=== PATIENT | female | born 1975 | race Caucasian/White ===

== ENCOUNTER 2016-12-07 15:54 | Observation (INO) | payer OTHER ==
[~2016-12-07] VITALS: Ht 152.4 cm; Wt 55.8 kg
[~2016-12-07 15:54] MED LIST: AMBIEN5 MG PO; ATIVAN2 MG PO; CEFTIN500 MG PO; CIPRO500 MG PO; DILAUDID2 MG PO; FERROUS SULFAT325 MG PO; FOLIC ACID1 MG PO; KEFLEX500 MG PO; LEVAQUIN750 MG PO; LIBRIUM25 MG PO; OXYCODONE HCL5 MG PO; PERCOCET 5/31 TABLET PO; PHENAZOPYRIDIN100 MG PO; THERAGRAN1 TABLET PO; THIAMINE HCL100 MG PO; TYLENOL EXTRA500 MG PO; Thiamine,Vitamin B1 PO; XANAX1 MG PO; ZOFRAN ODT4 MG PO
[2016-12-07 17:42] LABS: EOSINOPHIL (%) 0.8 % (0-5); HEMATOCRIT 35.3 % (36.0-46.0); LYMPHOCYTE COUNT 2.4 K/uL (1.0-2.8); MCH 35.6 PG (29.0-34.0); MCHC 34.6 G/DL (30.0-36.0); MCV 102.9 FL (83-99); MEAN PLAT.VOLUME 8.4 uM^3 (9.5-12.4); MONOCYTE (%) 7.9 % (3-12); MONOCYTE COUNT 0.4 K/uL (0-0.8); NEUTROPHIL (%) 44.5 % (45-76); NEUTROPHIL COUNT 2.4 K/uL (1.8-6.4); PLATELET COUNT 207 K/uL (156-360); RBC DIS.WIDTH-CV 13.4 % (11.8-14.6); RBC DIS.WIDTH-SD 49.3 % (39-53); RED BLOOD COUNT 3.43 M/uL (3.80-5.20); WHITE BLOOD COUNT 5.3 K/uL (4.1-10.2)
[2016-12-07 17:50] LABS: CHLORIDE 105 mEq/L (99-109); POTASSIUM 3.8 mEq/L (3.7-5.4); SODIUM 139 mEq/L (136-147)
[2016-12-07 17:52] LABS: GLUCOSE 94 mg/dL (70-99)
[2016-12-07 17:54] LABS: ANION GAP 13 MEQ/L (2-14); TOTAL BILIRUBIN 0.4 mg/dL (0.0-1.0)
[2016-12-07 17:56] LABS: ALKALINE PHOSPHATASE 51 IU/L (3-129); GFR ESTIMATE (CALCULATED) > 59 mL/min/
[2016-12-07 17:57] LABS: UREA NITROGEN (BUN) 15 mg/dL (9-23)
[2016-12-07 18:05] LABS: QUANTITATIVE HCG < 4.0 MIU/ML
[2016-12-07 21:48] LABS: TROP-I INTERPRETATION NEGATIVE; TROPONIN-I < 0.01 ng/mL (0.0-0.30)
[2016-12-07] MEDS ORDERED: NAPROSYN250 MG PO (22:46)
[2016-12-07] MEDS ORDERED: AMBIEN10 MG PO (22:47)
[2016-12-08 00:07] VITALS: BP 167/106
[2016-12-08 08:11] VITALS: BP 146/92
[2016-12-08 12:33] VITALS: BP 141/84
[2016-12-08 15:01] VITALS: BP 132/84
[2016-12-08 20:25] VITALS: BP 108/74
[2016-12-08 23:59] VITALS: BP 112/62
[2016-12-09 04:26] VITALS: BP 105/71
[2016-12-09 07:43] VITALS: BP 124/92
[2016-12-09 07:48] VITALS: BP 124/92
[2016-12-09] MEDS ORDERED: PREDNISONE20 MG PO (09:36)
[2016-12-09] MEDS ORDERED: LISINOPRIL5 MG PO (09:36)
[2016-12-09] MEDS ORDERED: CYCLOBENZAPRINE10 MG PO (09:36)
[2016-12-09] MEDS ORDERED: ENDOCET 5-3251 EACH PO (09:36)
[2016-12-09] MEDS ORDERED: LIDODERM 5% P1 PATCH TD (09:36)
[2016-12-09 10:28] VITALS: BP 124/92
== END 2016-12-09 11:01 | disposition home or self-care (01) ==
LOC: EME 15:54 → EDOF 23:20 → 5WEST 23:20 → EDOF 23:20 → 5WEST 23:52
PROVIDERS: Emergency Medicine
DX: S22.049A Unspecified fracture of fourth thoracic vertebra, initial encounter for closed fracture (principal); Y92.89 Other specified places as the place of occurrence of the external cause; Y93.44 Activity, trampolining; R07.9 Chest pain, unspecified; M62.830 Muscle spasm of back; F41.0 Panic disorder [episodic paroxysmal anxiety]; I10 Essential (primary) hypertension; R11.0 Nausea
CPT/HCPCS: 71260; 72129; 74177; 80053; 84484; 84702; 85025; 93005; 99281; 99285; G0378; J1100; J1170; J1644; J1885; J2060; J2405; J2765; J7030; J7512

== ENCOUNTER → 2017-03-05 19:58 | Emergency (ER) | payer OTHER ==
[~2017-03-05] VITALS: Ht 152.4 cm; Wt 53.4 kg
[~2017-03-05 19:58] MED LIST changes: +AMBIEN10 MG PO; +CYCLOBENZAPRINE10 MG PO; +ENDOCET 5-3251 EACH PO; +LIDODERM 5% P1 PATCH TD; +LISINOPRIL5 MG PO; +NAPROSYN250 MG PO; +PREDNISONE20 MG PO
[2017-03-05 20:16] VITALS: BP 137/99
== END | disposition left against medical advice (07) ==
LOC: EME 19:58
DX: R06.9 Unspecified abnormalities of breathing (principal); Z53.21 Procedure and treatment not carried out due to patient leaving prior to being seen by health care provider
CPT/HCPCS: 80053; 81003; 84702; 85027

== ENCOUNTER 2017-05-28 10:24 | Inpatient (IN) | payer OTHER ==
[~2017-05-28] VITALS: Ht 152.4 cm; Wt 53.7 kg
[2017-05-28 11:44] LABS: ADD MIUA? NO; BILIRUBIN NEGATIVE; BLOOD NEGATIVE; COLOR YELLOW ((YELLOW)); GLUCOSE (STRIP) NEGATIVE; KETONES 20; LEUKOCYTES NEGATIVE; NITRITE NEGATIVE; PROTEIN (STRIP) NEGATIVE; SPECIFIC GRAVITY 1.019 (1.000-1.030); UCUL ADDED? NO; UROBILINOGEN 0.2 MG/DL (0.2-1.0)
[2017-05-28 12:09] LABS: EOSINOPHIL (%) 0 % (0-5); HEMATOCRIT 32.4 % (36.0-46.0); IMMATURE GRANULOCYTE (%) 0.3 % (0.0-0.7); INSTRUMENT ABS NEUTROPHIL CT 2.6 K/uL; LYMPHOCYTE COUNT 0.4 K/uL (1.0-2.8); MCH 35.7 PG (29.0-34.0); MCV 105.2 FL (83-99); MONOCYTE (%) 9.4 % (3-12); MONOCYTE COUNT 0.3 K/uL (0-0.8); NEUTROPHIL (%) 77.9 % (45-76); NEUTROPHIL COUNT 2.6 K/uL (1.8-6.4); PLATELET COUNT 169 K/uL (156-360); RBC DIS.WIDTH-CV 13.8 % (11.8-14.6); RBC DIS.WIDTH-SD 53.5 % (39-53); RED BLOOD COUNT 3.08 M/uL (3.80-5.20); WHITE BLOOD COUNT 3.3 K/uL (4.1-10.2)
[2017-05-28 12:22] LABS: CHLORIDE 104 mEq/L (99-109); POTASSIUM 4.3 mEq/L (3.7-5.4); SODIUM 135 mEq/L (136-147)
[2017-05-28 12:24] LABS: GLUCOSE 98 mg/dL (70-99)
[2017-05-28 12:26] LABS: ANION GAP 13 MEQ/L (2-14); TOTAL BILIRUBIN 0.6 mg/dL (0.0-1.0)
[2017-05-28 12:28] LABS: ALKALINE PHOSPHATASE 73 IU/L (3-129); GFR ESTIMATE (CALCULATED) > 59 mL/min/
[2017-05-28 12:29] LABS: UREA NITROGEN (BUN) 7 mg/dL (9-23)
[2017-05-28] MEDS ORDERED: ZOFRAN4 MG PO (13:37)
[2017-05-28] MEDS ORDERED: CLONIDINE HCL0.2 MG PO (13:37)
[2017-05-28] MEDS ORDERED: MULTI VITAMIN1 EACH PO (13:37)
[2017-05-28] MEDS ORDERED: BACTRIM,SEPT1 TABLET PO (13:38)
[2017-05-28 14:03] LABS: QUANTITATIVE HCG < 4.0 MIU/ML
[2017-05-28 14:44] LABS: HBSG INDEX 0.27; HPCA INDEX 0.24
[2017-05-28 14:45] LABS: ANTI-HEPATITIS A VIRUS (IGM) Nonreactive; HAV INDEX 0.14
[2017-05-28 14:46] LABS: ANTI-HEPATITIS B CORE (IGM) Nonreactive; HBC IgM INDEX 0.08
[2017-05-28 15:41] LABS: FERRITIN 81 NG/ML (10-291)
[2017-05-28 16:22] VITALS: BP 144/91
[2017-05-28 19:51] VITALS: BP 151/83
[2017-05-29] VITALS: BP 144/81
[2017-05-29 07:59] VITALS: BP 140/84
[2017-05-29 12:04] VITALS: BP 184/99
[2017-05-29 15:24] LABS: MCH 35.4 PG (29.0-34.0); MCHC 33.1 G/DL (30.0-36.0); MCV 106.7 FL (83-99); MEAN PLAT.VOLUME 9.1 uM^3 (9.5-12.4); PLATELET COUNT 168 K/uL (156-360); RBC DIS.WIDTH-CV 13.5 % (11.8-14.6); RBC DIS.WIDTH-SD 54.1 % (39-53); RED BLOOD COUNT 3.28 M/uL (3.80-5.20); WHITE BLOOD COUNT 2.6 K/uL (4.1-10.2)
[2017-05-29 16:02] LABS: ANION GAP 9 MEQ/L (2-14); CHLORIDE 103 MEQ/L (99-109); GFR ESTIMATE (CALCULATED) > 59 mL/min/; GLUCOSE 141 mg/dL (70-99); POTASSIUM 3.5 MEQ/L (3.7-5.4); SAMPLE HEMOLYSIS CHECK 0; SAMPLE ICTERIC CHECK 0; SAMPLE LIPEMIA CHECK 0; SODIUM 133 MEQ/L (136-147); UREA NITROGEN (BUN) 2 mg/dL (9-23)
[2017-05-29 16:08] VITALS: BP 141/71
[2017-05-29 23:50] VITALS: BP 150/89
[2017-05-30 03:37] VITALS: BP 149/86
[2017-05-30 06:40] LABS: EOSINOPHIL (%) 5.4 % (0-5); EOSINOPHIL COUNT 0.2 K/uL (0-0.3); HEMATOCRIT 31.5 % (36.0-46.0); INSTRUMENT ABS NEUTROPHIL CT 1.2 K/uL; LYMPHOCYTE COUNT 1.1 K/uL (1.0-2.8); MCH 36.9 PG (29.0-34.0); MCHC 34.6 G/DL (30.0-36.0); MCV 106.8 FL (83-99); MEAN PLAT.VOLUME 9.5 uM^3 (9.5-12.4); MONOCYTE (%) 13.7 % (3-12); MONOCYTE COUNT 0.4 K/uL (0-0.8); NEUTROPHIL COUNT 1.2 K/uL (1.8-6.4); PLATELET COUNT 160 K/uL (156-360); RBC DIS.WIDTH-CV 13.3 % (11.8-14.6); RBC DIS.WIDTH-SD 52.5 % (39-53); RED BLOOD COUNT 2.95 M/uL (3.80-5.20); WHITE BLOOD COUNT 2.8 K/uL (4.1-10.2)
[2017-05-30 07:02] VITALS: BP 148/83
[2017-05-30 07:04] LABS: ALKALINE PHOSPHATASE 56 IU/L (3-129); ANION GAP 9 MEQ/L (2-14); CHLORIDE 108 MEQ/L (99-109); GFR ESTIMATE (CALCULATED) > 59 mL/min/; GLUCOSE 113 mg/dL (70-99); SAMPLE HEMOLYSIS CHECK 0; SAMPLE ICTERIC CHECK 0; SAMPLE LIPEMIA CHECK 0; SODIUM 138 MEQ/L (136-147); TOTAL BILIRUBIN 0.5 MG/DL (0.0-1.0); UREA NITROGEN (BUN) 2 mg/dL (9-23)
[2017-05-30 07:08] LABS: POTASSIUM 4.4 MEQ/L (3.7-5.4)
[2017-05-30] MEDS ORDERED: FOLIC ACID1 MG PO (10:10)
[2017-05-30] MEDS ORDERED: ENDOCET 5-3251 EACH PO (10:11)
[2017-05-30 10:30] VITALS: BP 148/83
== END 2017-05-30 13:15 | disposition home or self-care (01) | DRG 872 ==
LOC: EME 10:24 → EDOF 12:38 → 3EAST 13:02 → EDOF 13:02 → 3EAST 16:10
PROVIDERS: Emergency Medicine; Internal Medicine; Physician Assistant
DX: A41.9 Sepsis, unspecified organism (principal); N12 Tubulo-interstitial nephritis, not specified as acute or chronic; B96.20 Unspecified Escherichia coli [E. coli] as the cause of diseases classified elsewhere; E86.0 Dehydration; E87.1 Hypo-osmolality and hyponatremia; E87.6 Hypokalemia; N20.2 Calculus of kidney with calculus of ureter; K75.81 Nonalcoholic steatohepatitis (NASH); R74.0 Nonspecific elevation of levels of transaminase and lactic acid dehydrogenase [LDH]; I10 Essential (primary) hypertension; D72.819 Decreased white blood cell count, unspecified; K21.9 Gastro-esophageal reflux disease without esophagitis; D64.9 Anemia, unspecified; F32.9 Major depressive disorder, single episode, unspecified; G43.909 Migraine, unspecified, not intractable, without status migrainosus; Z82.49 Family history of ischemic heart disease and other diseases of the circulatory system; Z87.11 Personal history of peptic ulcer disease; Z87.891 Personal history of nicotine dependence
CPT/HCPCS: 71020; 74176; 80048; 80053; 80074; 81003; 82607; 82728; 82746; 83605; 84466; 84702; 85025; 85027; 87040; 87086; 99281; 99285; J0696; J1170; J2405; J2765; J7030; J7050; S0028

== ENCOUNTER 2017-07-23 13:37 | Inpatient (IN) | payer OTHER ==
[~2017-07-23] VITALS: Ht 152.4 cm; Wt 51.4 kg
[~2017-07-23 13:37] MED LIST changes: +BACTRIM,SEPT1 TABLET PO; +CLONIDINE HCL0.2 MG PO; +MULTI VITAMIN1 EACH PO; +ZOFRAN ODT8 MG PO
[2017-07-23 14:28] LABS: ADD MIUA? YES; BILIRUBIN NEGATIVE; BLOOD SMALL; COLOR YELLOW ((YELLOW)); GLUCOSE (STRIP) NEGATIVE; KETONES 80; LEUKOCYTES NEGATIVE; NITRITE NEGATIVE; PROTEIN (STRIP) 30; SPECIFIC GRAVITY 1.016 (1.000-1.030); UROBILINOGEN 0.2 MG/DL (0.2-1.0)
[2017-07-23 14:41] LABS: BACTERIA RARE /HPF; EPITHELIAL CELLS RARE /HPF; MUCUS TRACE /LPF; RED BLOOD CELLS 0-5 /HPF (0-5); UCUL ADDED? NO; WHITE BLOOD CELLS 0-5 /HPF (0-5)
[2017-07-23 15:11] LABS: EOSINOPHIL (%) 0.1 % (0-5); HEMATOCRIT 33.6 % (36.0-46.0); IMMATURE GRANULOCYTE (%) 0.4 % (0.0-0.7); INSTRUMENT ABS NEUTROPHIL CT 4.9 K/uL; LYMPHOCYTE COUNT 1.4 K/uL (1.0-2.8); MCH 34.9 PG (29.0-34.0); MCHC 33.6 G/DL (30.0-36.0); MCV 103.7 FL (83-99); MEAN PLAT.VOLUME 9.1 uM^3 (9.5-12.4); MONOCYTE (%) 6.7 % (3-12); MONOCYTE COUNT 0.5 K/uL (0-0.8); NEUTROPHIL (%) 71.9 % (45-76); NEUTROPHIL COUNT 4.9 K/uL (1.8-6.4); PLATELET COUNT 144 K/uL (156-360); RBC DIS.WIDTH-SD 49.5 % (39-53); RED BLOOD COUNT 3.24 M/uL (3.80-5.20); WHITE BLOOD COUNT 6.9 K/uL (4.1-10.2)
[2017-07-23 15:25] LABS: CHLORIDE 104 mEq/L (99-109); POTASSIUM 3.8 mEq/L (3.7-5.4); SODIUM 134 mEq/L (136-147)
[2017-07-23 15:27] LABS: GLUCOSE 66 mg/dL (70-99)
[2017-07-23 15:28] LABS: ANION GAP 23 MEQ/L (2-14)
[2017-07-23 15:31] LABS: GFR ESTIMATE (CALCULATED) > 59 mL/min/
[2017-07-23 15:32] LABS: UREA NITROGEN (BUN) 9 mg/dL (9-23)
[2017-07-23 16:05] LABS: CARBOXY HGB 0.6 % (0-5); COMMENTS - BLOOD GASES A+C+; DEVICE ROOM AIR; METHEMOGLOBIN 0.7 % (0-1.5); PCO2 < 20 mm Hg (35-45); PO2 118 mm Hg (80-100); SITE LR; pH 7.23 (7.35-7.45)
[2017-07-23 16:06] LABS: TOTAL RESP RATE 12 resp/min
[2017-07-23] MEDS ORDERED: NITROFURANTOIN100 M3 PO (16:38)
[2017-07-23 17:55] LABS: CHLORIDE 111 mEq/L (99-109); POTASSIUM 4.2 mEq/L (3.7-5.4); SODIUM 139 mEq/L (136-147)
[2017-07-23 17:56] LABS: GLUCOSE 66 mg/dL (70-99)
[2017-07-23 17:58] LABS: ANION GAP 21 MEQ/L (2-14)
[2017-07-23 18:00] LABS: GFR ESTIMATE (CALCULATED) > 59 mL/min/
[2017-07-23 18:01] LABS: UREA NITROGEN (BUN) 7 mg/dL (9-23)
[2017-07-23 20:28] VITALS: BP 143/110
[2017-07-23 20:30] VITALS: BP 145/98
[2017-07-23 21:19] LABS: POINT-OF-CARE METER ID UU13113748
[2017-07-23 21:45] LABS: METH RESISTANT S AUREUS PCR NEGATIVE (NEGATIVE)
[2017-07-23 23:12] LABS: PROBE CHECK PASS; SPECIMEN PROCESSING CONTROL PASS
[2017-07-24] VITALS (7 sets, daily range): BP systolic 121–169; BP diastolic 79–111
[2017-07-24 00:02] LABS: CHLORIDE 111 mEq/L (99-109); POTASSIUM 3.7 mEq/L (3.7-5.4); SODIUM 136 mEq/L (136-147)
[2017-07-24 00:05] LABS: ANION GAP 13 MEQ/L (2-14); GLUCOSE 189 mg/dL (70-99)
[2017-07-24 00:08] LABS: GFR ESTIMATE (CALCULATED) > 59 mL/min/
[2017-07-24 00:09] LABS: UREA NITROGEN (BUN) 5 mg/dL (9-23)
[2017-07-24 05:38] LABS: HEMATOCRIT 27.9 % (36.0-46.0); MCH 35.7 PG (29.0-34.0); MCHC 35.5 G/DL (30.0-36.0); MCV 100.7 FL (83-99); MEAN PLAT.VOLUME 9.3 uM^3 (9.5-12.4); PLATELET COUNT 107 K/uL (156-360); RBC DIS.WIDTH-CV 12.9 % (11.8-14.6); RBC DIS.WIDTH-SD 47.8 % (39-53); RED BLOOD COUNT 2.77 M/uL (3.80-5.20); WHITE BLOOD COUNT 4.3 K/uL (4.1-10.2)
[2017-07-24 06:11] LABS: ANION GAP 6 MEQ/L (2-14); CHLORIDE 106 MEQ/L (99-109); GFR ESTIMATE (CALCULATED) > 59 mL/min/; GLUCOSE 215 mg/dL (70-99); POTASSIUM 3.6 MEQ/L (3.7-5.4); SAMPLE HEMOLYSIS CHECK 0; SAMPLE ICTERIC CHECK 0; SAMPLE LIPEMIA CHECK 0; SODIUM 134 MEQ/L (136-147); UREA NITROGEN (BUN) 4 mg/dL (9-23)
[2017-07-24 11:49] LABS: DIRECT BILIRUBIN 0.3 mg/dL (0.0-0.3); TOTAL BILIRUBIN 1.1 MG/DL (0.0-1.0)
[2017-07-24 11:55] LABS: ALKALINE PHOSPHATASE 57 IU/L (3-129)
[2017-07-24 12:55] LABS: POINT-OF-CARE METER ID UU14174217
[2017-07-24 18:10] LABS: POINT-OF-CARE METER ID UU14162508
[2017-07-25] VITALS: BP 136/86
[2017-07-25 03:57] VITALS: BP 117/76
[2017-07-25 06:10] LABS: POINT-OF-CARE METER ID UU14162508
[2017-07-25 07:05] LABS: HEMATOCRIT 29.6 % (36.0-46.0); MCH 35.7 PG (29.0-34.0); MCHC 35.5 G/DL (30.0-36.0); MCV 100.7 FL (83-99); MEAN PLAT.VOLUME 9.7 uM^3 (9.5-12.4); PLATELET COUNT 103 K/uL (156-360); RBC DIS.WIDTH-SD 47.7 % (39-53); RED BLOOD COUNT 2.94 M/uL (3.80-5.20); WHITE BLOOD COUNT 4.2 K/uL (4.1-10.2)
[2017-07-25 07:25] LABS: INTER. NORMALIZED RATIO 0.9; PROTHROMBIN TIME 10.3 SEC (10.2-12.9)
[2017-07-25 07:27] LABS: PTT 25.5 SEC (25-37)
[2017-07-25 07:39] LABS: ANION GAP 12 MEQ/L (2-14); CHLORIDE 104 MEQ/L (99-109); GFR ESTIMATE (CALCULATED) > 59 mL/min/; POTASSIUM 3.7 MEQ/L (3.7-5.4); SAMPLE HEMOLYSIS CHECK 0; SAMPLE ICTERIC CHECK 0; SAMPLE LIPEMIA CHECK 0; SODIUM 137 MEQ/L (136-147); UREA NITROGEN (BUN) 2 mg/dL (9-23)
[2017-07-25 07:41] LABS: C-REACTIVE PROTEIN < 1.0 MG/L (0-10); GLUCOSE 101 mg/dL (70-99)
[2017-07-25 09:12] LABS: ERTH.SED.RATE 1 MM/HR (0-20)
[2017-07-25 11:25] VITALS: BP 145/84
[2017-07-25 13:20] LABS: POINT-OF-CARE METER ID UU14162508
[2017-07-25 19:16] VITALS: BP 162/95
[2017-07-26 00:07] VITALS: BP 162/90
[2017-07-26 00:21] VITALS: BP 119/67
[2017-07-26 03:40] VITALS: BP 145/95
[2017-07-26 06:48] VITALS: BP 162/95
[2017-07-26 07:21] LABS: HEMATOCRIT 30.1 % (36.0-46.0); MCHC 34.2 G/DL (30.0-36.0); MCV 99.3 FL (83-99); MEAN PLAT.VOLUME 9.3 uM^3 (9.5-12.4); PLATELET COUNT 116 K/uL (156-360); RBC DIS.WIDTH-CV 12.9 % (11.8-14.6); RBC DIS.WIDTH-SD 46.7 % (39-53); RED BLOOD COUNT 3.03 M/uL (3.80-5.20); WHITE BLOOD COUNT 3.6 K/uL (4.1-10.2)
[2017-07-26 07:49] LABS: C3 COMPLEMENT 112 MG/DL (58-170); C4 COMPLEMENT 30 MG/DL (10-40)
[2017-07-26 07:52] LABS: ALKALINE PHOSPHATASE 55 IU/L (3-129); ANION GAP 6 MEQ/L (2-14); CHLORIDE 101 MEQ/L (99-109); GFR ESTIMATE (CALCULATED) > 59 mL/min/; GLUCOSE 107 mg/dL (70-99); POTASSIUM 3.3 MEQ/L (3.7-5.4); SAMPLE HEMOLYSIS CHECK 0; SAMPLE ICTERIC CHECK 0; SAMPLE LIPEMIA CHECK 0; SODIUM 134 MEQ/L (136-147); UREA NITROGEN (BUN) 2 mg/dL (9-23)
[2017-07-26 07:53] LABS: TOTAL BILIRUBIN 0.6 MG/DL (0.0-1.0)
[2017-07-26 13:35] LABS: C DIFF TOXIN NEGATIVE (NEGATIVE); INTERNAL CONTROL VALID? YES; PROBE CHECK PASS; SPECIMEN PROCESSING CONTROL PASS
[2017-07-26 18:23] VITALS: BP 120/82
[2017-07-26 19:21] VITALS: BP 125/92
[2017-07-27 03:23] VITALS: BP 117/77
[2017-07-27 06:09] LABS: HEMATOCRIT 27.9 % (36.0-46.0); MCH 33.7 PG (29.0-34.0); MCHC 33.3 G/DL (30.0-36.0); MCV 101.1 FL (83-99); MEAN PLAT.VOLUME 9.6 uM^3 (9.5-12.4); PLATELET COUNT 127 K/uL (156-360); RBC DIS.WIDTH-CV 13.2 % (11.8-14.6); RBC DIS.WIDTH-SD 47.7 % (39-53); RED BLOOD COUNT 2.76 M/uL (3.80-5.20); WHITE BLOOD COUNT 2.9 K/uL (4.1-10.2)
[2017-07-27 06:28] LABS: ANION GAP 5 MEQ/L (2-14); CHLORIDE 110 MEQ/L (99-109); GFR ESTIMATE (CALCULATED) > 59 mL/min/; GLUCOSE 107 mg/dL (70-99); IRON 31 MCG/DL (35-150); MAGNESIUM 1.1 mg/dl (1.3-2.7); POTASSIUM 3.5 MEQ/L (3.7-5.4); SAMPLE HEMOLYSIS CHECK 0; SAMPLE ICTERIC CHECK 0; SAMPLE LIPEMIA CHECK 0; SODIUM 137 MEQ/L (136-147); UREA NITROGEN (BUN) 6 mg/dL (9-23)
[2017-07-27 07:41] VITALS: BP 110/80
[2017-07-27 23:15] VITALS: BP 115/68
[2017-07-28 07:15] VITALS: BP 120/75
[2017-07-28 07:33] LABS: MCH 34.1 PG (29.0-34.0); MCHC 33.5 G/DL (30.0-36.0); MEAN PLAT.VOLUME 9.4 uM^3 (9.5-12.4); PLATELET COUNT 151 K/uL (156-360); RBC DIS.WIDTH-CV 13.6 % (11.8-14.6); RBC DIS.WIDTH-SD 49.6 % (39-53); RED BLOOD COUNT 2.55 M/uL (3.80-5.20)
[2017-07-28 08:02] LABS: ANION GAP 7 MEQ/L (2-14); CHLORIDE 110 MEQ/L (99-109); GFR ESTIMATE (CALCULATED) > 59 mL/min/; GLUCOSE 100 mg/dL (70-99); POTASSIUM 3.9 MEQ/L (3.7-5.4); SAMPLE HEMOLYSIS CHECK 0; SAMPLE ICTERIC CHECK 0; SAMPLE LIPEMIA CHECK 0; SODIUM 138 MEQ/L (136-147); UREA NITROGEN (BUN) 5 mg/dL (9-23)
[2017-07-28 08:03] LABS: MAGNESIUM 1.5 mg/dl (1.3-2.7)
[2017-07-28 12:40] LABS: INTERNAL CONTROL VALID? YES
[2017-07-28 23:47] VITALS: BP 138/88
[2017-07-29 08:07] VITALS: BP 135/84
[2017-07-29 16:27] VITALS: BP 157/91
[2017-07-29 23:36] VITALS: BP 139/86
[2017-07-30 07:20] VITALS: BP 145/92
[2017-07-30 09:38] LABS: MCH 34.1 PG (29.0-34.0); MCHC 33.9 G/DL (30.0-36.0); MCV 100.6 FL (83-99); MEAN PLAT.VOLUME 9.4 uM^3 (9.5-12.4); RBC DIS.WIDTH-CV 14.1 % (11.8-14.6); RBC DIS.WIDTH-SD 51.8 % (39-53); WHITE BLOOD COUNT 3.5 K/uL (4.1-10.2)
[2017-07-30 09:39] LABS: RED BLOOD COUNT 3.28 M/uL (3.80-5.20)
[2017-07-30 09:40] LABS: PLATELET COUNT 286 K/uL (156-360)
[2017-07-30] MEDS ORDERED: ZOFRAN ODT8 MG PO (10:10)
[2017-07-30] MEDS ORDERED: TOPROL XL50 MG PO (10:10)
[2017-07-30] MEDS ORDERED: ENDOCET 5-3251 EACH PO (10:10)
[2017-07-30] MEDS ORDERED: CYANOCOBAL1000 MCG/2 SC (10:10)
== END 2017-07-30 11:48 | disposition home or self-care (01) | DRG 641 ==
LOC: EME 13:37 → 2EAST 17:05 → 4WEST 17:05 → EDOF 17:05 → ENRESERV 17:08 → 4WEST 20:16 → ENRESERV 07-24 10:53 → 2EAST 07-24 16:11
PROVIDERS: Emergency Medicine; Family Medicine; Hospitalist; Internal Medicine; Internal Medicine Gastroenterology
PROC: 0DJ08ZZ Inspection of Upper Intestinal Tract, Via Natural or Artificial Opening Endoscopic (ICD-10-PCS; principal; 2017-07-25)
DX: E87.2 Acidosis (principal); E46 Unspecified protein-calorie malnutrition; N39.0 Urinary tract infection, site not specified; D61.818 Other pancytopenia; E53.8 Deficiency of other specified B group vitamins; F10.10 Alcohol abuse, uncomplicated; F41.9 Anxiety disorder, unspecified; I10 Essential (primary) hypertension; K21.9 Gastro-esophageal reflux disease without esophagitis; K82.8 Other specified diseases of gallbladder; K76.0 Fatty (change of) liver, not elsewhere classified; K29.60 Other gastritis without bleeding; B96.29 Other Escherichia coli [E. coli] as the cause of diseases classified elsewhere; G47.00 Insomnia, unspecified; N20.0 Calculus of kidney; Z68.22 Body mass index [BMI] 22.0-22.9, adult; Z87.11 Personal history of peptic ulcer disease; Z87.440 Personal history of urinary (tract) infections; S00.11XA Contusion of right eyelid and periocular area, initial encounter; W19.XXXA Unspecified fall, initial encounter; Z88.5 Allergy status to narcotic agent; Z87.891 Personal history of nicotine dependence; Z87.442 Personal history of urinary calculi; Z82.49 Family history of ischemic heart disease and other diseases of the circulatory system
CPT/HCPCS: 36600; 70450; 71010; 74000; 74176; 76705; 80048; 80048 91; 80053; 80076; 81003; 82272; 82607; 82746; 82803; 82948; 83540; 83605; 83630; 83735; 85025; 85027; 85610; 85651; 85730; 86038; 86140; 86160; 87040; 87077; 87086; 87186; 87493; 87506; 87641; 95819; 99281; 99285; C9113; J1170; J1335; J2250; J2405; J2765; J3010; J3420; J3475; J3480; J7030; J7050

== ENCOUNTER 2017-12-09 16:53 | Emergency (ER) | payer OTHER ==
[~2017-12-09] VITALS: Ht 152.4 cm; Wt 45.9 kg
[~2017-12-09 16:53] MED LIST changes: +CYANOCOBAL1000 MCG/2 SC; +LIDOCAINE20 MG/1 M5 PO; +LOPRESSOR25 MG PO; +MAG-AL PLUS SUS30 ML PO; +METOPROLOL SUCC50 MG PO; +NITROFURANTOIN100 M3 PO; +PANTOPRAZOLE SO40 MG PO; +SUCRALFATE1 GM/10 ML PO; +TOPROL XL50 MG PO
[2017-12-09 17:49] LABS: BASOPHIL (%) 0.4 % (0-1); EOSINOPHIL (%) 0.6 % (0-5); HEMATOCRIT 39.9 % (36.0-46.0); IMMATURE GRANULOCYTE (%) 0.2 % (0.0-0.7); LYMPHOCYTE COUNT 1.8 K/uL (1.0-2.8); MCH 35.4 PG (29.0-34.0); MCHC 35.1 G/DL (30.0-36.0); MCV 100.8 FL (83-99); MONOCYTE (%) 7.7 % (3-12); MONOCYTE COUNT 0.4 K/uL (0-0.8); NEUTROPHIL (%) 54.1 % (45-76); NEUTROPHIL COUNT 2.6 K/uL (1.8-6.4); PLATELET COUNT 275 K/uL (156-360); RBC DIS.WIDTH-CV 13.3 % (11.8-14.6); RBC DIS.WIDTH-SD 49.9 % (39-53); RED BLOOD COUNT 3.96 M/uL (3.80-5.20); WHITE BLOOD COUNT 4.8 K/uL (4.1-10.2)
[2017-12-09 17:59] LABS: ALBUMIN 4.9 g/dL (3.2-4.8)
[2017-12-09 18:00] LABS: CHLORIDE 109 mEq/L (99-109); POTASSIUM 3.4 mEq/L (3.7-5.4); SODIUM 142 mEq/L (136-147)
[2017-12-09 18:02] LABS: GLUCOSE 108 mg/dL (70-99); TOTAL PROTEIN 8.4 g/dL (6.4-8.3)
[2017-12-09 18:04] LABS: TOTAL BILIRUBIN 0.7 mg/dL (0.0-1.0)
[2017-12-09 18:05] LABS: ALKALINE PHOSPHATASE 73 IU/L (3-129)
[2017-12-09 18:06] LABS: CREATININE 0.8 mg/dL (0.6-1.3); GFR ESTIMATE (CALCULATED) > 59 mL/min/
[2017-12-09 18:07] LABS: AST (GOT) 31 IU/L (2-34); UREA NITROGEN (BUN) 7 mg/dL (9-23)
[2017-12-09 18:08] LABS: ALT (GPT) 17 IU/L (3-49)
[2017-12-09 18:09] LABS: LIPASE 30 U/L (1.0-51.0)
[2017-12-09 18:17] LABS: QUANTITATIVE HCG < 4.0 MIU/ML
[2017-12-09 19:27] LABS: APPEARANCE CLEAR ((CLEAR)); BILIRUBIN NEGATIVE; BLOOD MODERATE; COLOR STRAW ((YELLOW)); GLUCOSE (STRIP) NEGATIVE; KETONES NEGATIVE; LEUKOCYTES NEGATIVE; NITRITE NEGATIVE; PROTEIN (STRIP) NEGATIVE; SPECIFIC GRAVITY 1.005 (1.000-1.030); UROBILINOGEN 0.2 MG/DL (0.2-1.0)
[2017-12-09 19:31] LABS: BACTERIA NONE SEEN /HPF; EPITHELIAL CELLS RARE /HPF; MUCUS TRACE /LPF; RED BLOOD CELLS 0-5 /HPF (0-5); UCUL ADDED? NO; WHITE BLOOD CELLS 0-5 /HPF (0-5)
[2017-12-09] MEDS ORDERED: REGLAN5 MG PO (21:36)
[2017-12-09] MEDS ORDERED: NORCO 5/3251 TABLET PO (21:58)
[2017-12-09 22:12] VITALS: BP 104/79
== END 2017-12-09 22:15 | disposition home or self-care (01) ==
LOC: EME 16:53
PROVIDERS: Nurse Practitioner Family
DX: E86.0 Dehydration (principal); R10.9 Unspecified abdominal pain; R19.7 Diarrhea, unspecified; R30.0 Dysuria; E87.6 Hypokalemia; R35.0 Frequency of micturition; R00.0 Tachycardia, unspecified; Z87.440 Personal history of urinary (tract) infections; Z87.442 Personal history of urinary calculi
CPT/HCPCS: 71046; 80053; 81003; 83605; 83690; 84702; 85025; 87040; 87086; 87493; 87502; 93005; 99281; 99285; J1885; J2405; J2765; J3010; J7030

== ENCOUNTER 2018-03-09 16:07 | Observation (INO) | payer OTHER ==
[~2018-03-09] VITALS: Ht 152.4 cm; Wt 49.0 kg
[~2018-03-09 16:07] MED LIST changes: +NORCO 5/3251 TABLET PO; +REGLAN5 MG PO
[2018-03-09 16:46] LABS: APPEARANCE CLEAR ((CLEAR)); BILIRUBIN NEGATIVE; BLOOD SMALL; COLOR YELLOW ((YELLOW)); GLUCOSE (STRIP) NEGATIVE; KETONES 80; LEUKOCYTES NEGATIVE; NITRITE POSITIVE; PROTEIN (STRIP) 30; SPECIFIC GRAVITY 1.015 (1.000-1.030); UROBILINOGEN 0.2 MG/DL (0.2-1.0)
[2018-03-09 16:54] LABS: BACTERIA RARE /HPF; EPITHELIAL CELLS RARE /HPF; HYALINE CASTS 0-5 /LPF; MUCUS TRACE /LPF; RED BLOOD CELLS 0-5 /HPF (0-5); UCUL ADDED? NO; WHITE BLOOD CELLS 0-5 /HPF (0-5)
[2018-03-09 17:19] LABS: HEMATOCRIT 34.7 % (36.0-46.0); HEMOGLOBIN 12.1 G/DL (11.9-15.5); MCH 37.8 PG (29.0-34.0); MCHC 34.9 G/DL (30.0-36.0); MCV 108.4 FL (83-99); PLATELET COUNT 204 K/uL (156-360); RBC DIS.WIDTH-CV 13.7 % (11.8-14.6); RBC DIS.WIDTH-SD 55.9 % (39-53)
[2018-03-09 17:41] LABS: CHLORIDE 100 MEQ/L (99-109); POTASSIUM 3.5 MEQ/L (3.7-5.4); SODIUM 136 MEQ/L (136-147)
[2018-03-09 17:46] LABS: CREATININE 0.7 MG/DL (0.6-1.3); GFR ESTIMATE (CALCULATED) > 59 mL/min/; UREA NITROGEN (BUN) 13 mg/dL (9-23)
[2018-03-09 17:47] LABS: GLUCOSE 149 mg/dL (70-99)
[2018-03-09 18:02] LABS: CREATINE KINASE 32 IU/L (1-294)
[2018-03-09 18:07] LABS: TROP-I INTERPRETATION NEGATIVE; TROPONIN-I < 0.01 ng/mL (0.0-0.30)
[2018-03-09 18:21] LABS: QUANTITATIVE HCG < 4.0 MIU/ML
[2018-03-09] MEDS ORDERED: TYLENOL REGULA325 MG PO (18:52)
[2018-03-09] MEDS ORDERED: FLONASE16 G1 BOTH NARES (18:52)
[2018-03-09 19:41] LABS: ALBUMIN 4.6 G/DL (3.2-4.8); DIRECT BILIRUBIN 0.1 mg/dL (0.0-0.3); TOTAL BILIRUBIN 0.3 MG/DL (0.0-1.0)
[2018-03-09 19:46] LABS: ALKALINE PHOSPHATASE 48 IU/L (3-129); ALT (GPT) 12 IU/L (3-49); AST (GOT) 33 IU/L (2-34); PHOSPHORUS 2.2 mg/dL (2.5-4.9); SERUM ETHYL ALCOHOL 135 mg/dL; TOTAL PROTEIN 7.3 G/DL (6.4-8.3)
[2018-03-09 19:53] LABS: CARBON DIOXIDE (BICARBONATE) 18.2 MEQ/L (20-31)
[2018-03-09 20:35] LABS: AMPHETAMINE NEGATIVE (500 ng/mL); BARBITURATES NEGATIVE (200 ng/mL); BENZODIAZEPINES PRESUMPTIVE POSITIVE (150 ng/mL); BUPRENORPHINE NEGATIVE (10 ng/mL); COCAINE NEGATIVE (150 ng/mL); METHADONE NEGATIVE (200 ng/mL); METHAMPHETAMINE NEGATIVE (500 ng/mL); OPIATES (MORPHINE) NEGATIVE (100 ng/mL); OXYCODONE NEGATIVE (100 ng/mL); PHENCYCLIDINE NEGATIVE (25 ng/mL); PROPOXYPHENE NEGATIVE (300 ng/mL); THC CANNABINOIDS NEGATIVE (50 ng/mL); TRICYCLIC ANTIDEPRESSANTS NEGATIVE (300 ng/mL)
[2018-03-09 20:57] VITALS: BP 121/84
[2018-03-09 21:29] LABS: BENZODIAZEPINES, URINE SCREEN POSITIVE (200 ng/mL)
[2018-03-10] VITALS (7 sets, daily range): BP systolic 102–156; BP diastolic 64–98
[2018-03-10 06:44] LABS: ALBUMIN 3.9 G/DL (3.2-4.8); ALKALINE PHOSPHATASE 39 IU/L (3-129); ALT (GPT) 9 IU/L (3-49); AST (GOT) 22 IU/L (2-34); CHLORIDE 104 MEQ/L (99-109); CREATININE 0.5 MG/DL (0.6-1.3); GFR ESTIMATE (CALCULATED) > 59 mL/min/; POTASSIUM 3.9 MEQ/L (3.7-5.4); SODIUM 138 MEQ/L (136-147); TOTAL PROTEIN 6.5 G/DL (6.4-8.3); UREA NITROGEN (BUN) 11 mg/dL (9-23)
[2018-03-10 06:53] LABS: GLUCOSE 66 mg/dL (70-99)
[2018-03-10 13:15] LABS: TROP-I INTERPRETATION NEGATIVE; TROPONIN-I < 0.01 ng/mL (0.0-0.30)
[2018-03-10 13:15] LABS: CREATINE KINASE 32 IU/L (1-294)
[2018-03-11 05:24] LABS: HEMATOCRIT 29.9 % (36.0-46.0); HEMOGLOBIN 10.2 G/DL (11.9-15.5); MCH 36.4 PG (29.0-34.0); MCHC 34.1 G/DL (30.0-36.0); MCV 106.8 FL (83-99); PLATELET COUNT 179 K/uL (156-360); RBC DIS.WIDTH-CV 13.6 % (11.8-14.6); RBC DIS.WIDTH-SD 53.7 % (39-53); WHITE BLOOD COUNT 3.9 K/uL (4.1-10.2)
[2018-03-11 06:01] LABS: CHLORIDE 103 MEQ/L (99-109); CREATININE 0.6 MG/DL (0.6-1.3); GFR ESTIMATE (CALCULATED) > 59 mL/min/; POTASSIUM 3.7 MEQ/L (3.7-5.4); SODIUM 140 MEQ/L (136-147); UREA NITROGEN (BUN) 11 mg/dL (9-23)
[2018-03-11 06:03] LABS: GLUCOSE 104 mg/dL (70-99)
[2018-03-11 07:56] VITALS: BP 122/67
[2018-03-11 08:45] LABS: FOLIC ACID (FOLATE) 5.9 NG/ML (5.0-22.0)
[2018-03-11 12:32] VITALS: BP 110/73
[2018-03-11] MEDS ORDERED: Thiamine,Vitamin B1 PO (13:41)
[2018-03-11] MEDS ORDERED: CYANOCOBALAM1000 MCG PO (13:41)
[2018-03-11] MEDS ORDERED: CHLORDIAZEPOXID25 MG PO (13:41)
[2018-03-11] MEDS ORDERED: THERAGRAN1 TABLET PO (13:41)
[2018-03-11] MEDS ORDERED: FOLIC ACID1 MG PO (13:41)
[2018-03-11] MEDS ORDERED: OXYCODONE HCL5 MG PO (13:41)
[2018-03-11] MEDS ORDERED: LACTULOSE10 GM/151 PO (16:42)
== END 2018-03-11 17:38 | disposition home or self-care (01) ==
LOC: EME 16:07 → EDOF 19:12 → 4SOUTH 19:12 → ENRESERV 19:22 → 4SOUTH 20:45
PROVIDERS: Emergency Medicine; Internal Medicine; Physician Assistant Medical; Specialist
DX: R00.0 Tachycardia, unspecified (principal); E87.2 Acidosis; N39.0 Urinary tract infection, site not specified; B96.20 Unspecified Escherichia coli [E. coli] as the cause of diseases classified elsewhere; Z16.12 Extended spectrum beta lactamase (ESBL) resistance; E72.20 Disorder of urea cycle metabolism, unspecified; K52.9 Noninfective gastroenteritis and colitis, unspecified; D75.89 Other specified diseases of blood and blood-forming organs; F41.1 Generalized anxiety disorder; F10.129 Alcohol abuse with intoxication, unspecified; Y90.6 Blood alcohol level of 120-199 mg/100 ml; K76.0 Fatty (change of) liver, not elsewhere classified; R94.31 Abnormal electrocardiogram [ECG] [EKG]; D64.9 Anemia, unspecified; Z91.14 Patient's other noncompliance with medication regimen; I12.9 Hypertensive chronic kidney disease with stage 1 through stage 4 chronic kidney disease, or unspecified chronic kidney disease; N18.9 Chronic kidney disease, unspecified; G43.909 Migraine, unspecified, not intractable, without status migrainosus; K21.9 Gastro-esophageal reflux disease without esophagitis; Z87.11 Personal history of peptic ulcer disease; E53.8 Deficiency of other specified B group vitamins; F32.9 Major depressive disorder, single episode, unspecified; F41.0 Panic disorder [episodic paroxysmal anxiety]; G89.29 Other chronic pain; Z87.442 Personal history of urinary calculi; Z87.440 Personal history of urinary (tract) infections; Z87.891 Personal history of nicotine dependence; Z82.49 Family history of ischemic heart disease and other diseases of the circulatory system; Z88.5 Allergy status to narcotic agent
CPT/HCPCS: 71046; 76705; 80048; 80053; 80076; 81003; 82140; 82550; 82607; 82746; 82803; 82948; 83605; 83735; 84100; 84439; 84481; 84484; 84702; 84999; 85027; 87077; 87086; 87186; 87493; 93005; 93306; 99281; 99285; G0378; G0480; J0696; J0780; J7120

== ENCOUNTER 2018-06-07 11:08 | Emergency (ER) | payer OTHER ==
[~2018-06-07] VITALS: Ht 152.4 cm; Wt 49.0 kg
[~2018-06-07 11:08] MED LIST changes: +CHLORDIAZEPOXID25 MG PO; +CYANOCOBALAM1000 MCG PO; +FLONASE16 G1 BOTH NARES; +LACTULOSE10 GM/151 PO; +TYLENOL REGULA325 MG PO
[2018-06-07] MEDS ORDERED: LOPRESSOR25 MG PO (11:23)
[2018-06-07 12:10] LABS: APPEARANCE CLEAR ((CLEAR)); BILIRUBIN NEGATIVE; BLOOD NEGATIVE; COLOR YELLOW ((YELLOW)); GLUCOSE (STRIP) NEGATIVE; KETONES NEGATIVE; LEUKOCYTES TRACE; NITRITE POSITIVE; PROTEIN (STRIP) NEGATIVE; SPECIFIC GRAVITY 1.018 (1.000-1.030); UROBILINOGEN 0.2 MG/DL (0.2-1.0)
[2018-06-07 12:13] LABS: HEMATOCRIT 41.9 % (36.0-46.0); HEMOGLOBIN 15.4 G/DL (11.9-15.5); MCH 38.3 PG (29.0-34.0); MCHC 36.8 G/DL (30.0-36.0); MCV 104.2 FL (83-99); PLATELET COUNT 297 K/uL (156-360); RBC DIS.WIDTH-CV 14.4 % (11.8-14.6); RBC DIS.WIDTH-SD 55.5 % (39-53); RED BLOOD COUNT 4.02 M/uL (3.80-5.20); WHITE BLOOD COUNT 6.9 K/uL (4.1-10.2)
[2018-06-07 12:13] LABS: BACTERIA RARE /HPF; EPITHELIAL CELLS RARE /HPF; MUCUS TRACE /LPF; UCUL ADDED? YES
[2018-06-07 12:24] LABS: CHLORIDE 106 mEq/L (99-109); POTASSIUM 4.3 mEq/L (3.7-5.4); SODIUM 141 mEq/L (136-147)
[2018-06-07 12:25] LABS: GLUCOSE 90 mg/dL (70-99)
[2018-06-07 12:29] LABS: CREATININE 1.1 mg/dL (0.6-1.3); GFR ESTIMATE (CALCULATED) 57 mL/min/
[2018-06-07 12:30] LABS: UREA NITROGEN (BUN) 22 mg/dL (9-23)
[2018-06-07 12:41] LABS: QUANTITATIVE HCG < 4.0 MIU/ML
[2018-06-07] MEDS ORDERED: FLEXERIL10 MG PO (14:40)
[2018-06-07] MEDS ORDERED: MOTRIN400 MG PO (14:40)
[2018-06-07 14:48] VITALS: BP 97/63
== END 2018-06-07 15:07 | disposition home or self-care (01) ==
LOC: EME 11:08
PROVIDERS: Nurse Practitioner Family
DX: S09.93XA Unspecified injury of face, initial encounter (principal); T71.193A Asphyxiation due to mechanical threat to breathing due to other causes, assault, initial encounter; R11.0 Nausea; M54.2 Cervicalgia; S00.03XA Contusion of scalp, initial encounter; S60.212A Contusion of left wrist, initial encounter; S60.211A Contusion of right wrist, initial encounter; S00.12XA Contusion of left eyelid and periocular area, initial encounter; Y04.0XXA Assault by unarmed brawl or fight, initial encounter; S00.412A Abrasion of left ear, initial encounter; Y04.2XXA Assault by strike against or bumped into by another person, initial encounter; Y07.03 Male partner, perpetrator of maltreatment and neglect; N83.201 Unspecified ovarian cyst, right side; K42.9 Umbilical hernia without obstruction or gangrene; I10 Essential (primary) hypertension; Z87.440 Personal history of urinary (tract) infections; Z87.442 Personal history of urinary calculi
CPT/HCPCS: 70450; 70486; 70498; 71260; 72128; 72131; 72132; 74177; 80048; 81003; 84702; 85027; 87077; 87086; 87186; 99281; 99285; J1885; J2765; J7030